=== PATIENT | male | born 1945 | race Hispanic/Latino ===

== ENCOUNTER → 2017-12-24 | Outpatient (CLI) | payer OTHER ==
[~2017-12-24] MED LIST: IOPAMIDOL-370 75 ML VIAL IV ONE; ISOVUE-370 50ML VIAL IV ONE
== END ==
LOC: RAH 07:21
PROVIDERS: ATTEND Internal Medicine Cardiovascular Disease
DX: I70.0 Atherosclerosis of aorta (principal); I70.202 Unspecified atherosclerosis of native arteries of extremities, left leg; I70.201 Unspecified atherosclerosis of native arteries of extremities, right leg
CPT/HCPCS: 75635; Q9967 ×2

== ENCOUNTER → 2021-12-01 | Outpatient (CLI) | payer OTHER ==
[~2021-12-01] VITALS: Ht 175.3 cm; Wt 76.2 kg
[~2021-12-01] MED LIST changes: -IOPAMIDOL-370 75 ML VIAL IV ONE; -ISOVUE-370 50ML VIAL IV ONE; +REGADENOSON 0.4 MG/5 ML PF SYG IVP SCH
== END | disposition home or self-care (01) ==
LOC: SHCH 09:01
PROVIDERS: ATTEND Internal Medicine Cardiovascular Disease
DX: I20.0 Unstable angina (principal); R42 Dizziness and giddiness; R94.39 Abnormal result of other cardiovascular function study
CPT/HCPCS: 78452; 93017; 96374; A9500 ×2; J2785

== ENCOUNTER → 2021-12-08 | Outpatient (CLI) | payer OTHER ==
[~2021-12-08] MED LIST changes: +IOHEXOL 350 MG/ML 100ML INFUS..BTL IV ONE; -REGADENOSON 0.4 MG/5 ML PF SYG IVP SCH
== END | disposition home or self-care (01) ==
LOC: RAH 10:01
PROVIDERS: ATTEND Family Medicine
DX: K76.89 Other specified diseases of liver (principal); R16.0 Hepatomegaly, not elsewhere classified; I70.0 Atherosclerosis of aorta
CPT/HCPCS: 74170; Q9967

== ENCOUNTER → 2022-02-02 | Outpatient (CLI) | payer OTHER | END | disposition home or self-care (01) | LOC: SHCH 10:58 | PROVIDERS: ATTEND Internal Medicine Cardiovascular Disease | DX: I73.9 Peripheral vascular disease, unspecified (principal) | CPT/HCPCS: 93925 ==

== ENCOUNTER 2022-04-14 06:48 | Day surgery (SDC) | payer OTHER ==
[2022-04-10 09:59] LABS: BASOPHILS % (AUTO) 0.5 % (0.0-5.0); EOSINOPHILS % (AUTO) 5.3 % (0.0-8.0); HEMATOCRIT 29.6 % (42-54); LYMPHOCYTES % (AUTO) 25.2 % (21.0-51.0); MEAN CORPUSCULAR HEMOGLOBIN 30.4 pg (27.0-33.0); MEAN CORPUSCULAR HGB CONC 33.4 g/dL (32.0-36.0); MEAN CORPUSCULAR VOLUME 90.8 fL (79-99); MONOCYTES % (AUTO) 10.4 % (3.0-13.0); PLATELET COUNT (AUTO) 268 K/uL (130-400); RED BLOOD CELL COUNT(AUTO) 3.26 MIL/uL (4.50-6.20); RED CELL DISTRIBUTION WIDTH 13.9 % (11.0-15.5); WHITE BLOOD COUNT (AUTO) 5.5 K/uL (4.8-10.8)
[2022-04-10 10:20] LABS: CREATININE 1.5 mg/dL (0.5-1.5); POTASSIUM 4.4 mmol/L (3.5-5.1)
[2022-04-10 10:21] LABS: INR 0.97 (0.85-1.15); PROTHROMBIN TIME 10.6 SEC (9.6-11.6)
[2022-04-10 10:22] LABS: PARTIAL THROMBOPLASTIN TIME 27.5 SEC (26.3-35.5)
[2022-04-10 14:11] VITALS: BP 142/60
[2022-04-14] VITALS (11 sets, daily range): BP systolic 96–129; BP diastolic 35–60
[~2022-04-14] VITALS: Ht 172.7 cm; Wt 77.4 kg
[~2022-04-14 06:48] MED LIST changes: +0.9% NACL 500ML IV.SOLN 500 ML IV SCH; +AMLO-257 PO; +ATOR40TA71 PO; +CLOP75TA32 PO; +FERR-72 PO; +FINA5TAB41 PO; +GLIP5TAB11 PO; -IOHEXOL 350 MG/ML 100ML INFUS..BTL IV ONE; +ISOS60TA77 PO; +LISI1TAB53 PO; +METO25TA6 PO; +TAMS-1 PO
[2022-04-14] MEDS ORDERED: 0.9%NACL 1000ML 1,000 ML IV ONE (07:10)
[2022-04-14] MEDS ORDERED: NITROGLYCERIN 50MG VIAL ONE (08:58)
[2022-04-14] MEDS ORDERED: HEPARIN 10,000 UNIT/10ML (1,000 UNIT/ML) VIAL ONE (08:58)
[2022-04-14] MEDS ORDERED: IODIXANOL 320 MG/ML 100 ML VIAL ONE (08:58)
[2022-04-14] MEDS ORDERED: FENTANYL CITRATE PF 50 MCG/1 ML 2ML VIAL ONE (08:59)
[2022-04-14] MEDS ORDERED: MIDAZOLAM HCL 1 MG/ML 2ML VIAL ONE (08:59)
[2022-04-14] MEDS ORDERED: LIDOCAINE HCL 400MG/20ML VIAL ONE (09:16)
[2022-04-14] MEDS ORDERED: ASPIRIN 325MG EC TAB PO ONE (10:02)
[2022-04-14] MEDS ORDERED: CLOPIDOGREL 300MG TAB ONE (10:02)
[2022-04-14] MEDS ORDERED: IOHEXOL-350 50ML VIAL IV ONE (10:56)
[2022-04-14] MEDS ORDERED: HYDRALAZINE 20MG/ML VIAL ONE (11:30)
[2022-04-14] MEDS ORDERED: GLUCAGON 1MG KIT 1 MG ML IM PRN (12:00)
[2022-04-14] MEDS ORDERED: 0.9%NACL 1000ML 1,000 ML IV SCH (12:00)
[2022-04-14] MEDS ORDERED: DEXTROSE 50%-WATER 50 ML DISP.SYRIN IV PRN (12:00)
== END 2022-04-14 17:00 | disposition home or self-care (01) ==
LOC: DAH 06:48
PROVIDERS: ATTEND Internal Medicine Cardiovascular Disease
DX: I70.211 Atherosclerosis of native arteries of extremities with intermittent claudication, right leg (principal); I12.9 Hypertensive chronic kidney disease with stage 1 through stage 4 chronic kidney disease, or unspecified chronic kidney disease; N18.30 Chronic kidney disease, stage 3 unspecified; E78.5 Hyperlipidemia, unspecified; Z87.891 Personal history of nicotine dependence; Z79.82 Long term (current) use of aspirin; Z79.01 Long term (current) use of anticoagulants; Z79.899 Other long term (current) drug therapy
CPT/HCPCS: 80048; 85025; 85610; 85730; 36415; 71045; 93005; 75716; 82948; C9765; C1725 ×5; C1894 ×3; C1769 ×2; C1887; C1760 ×2; C1876; C1727; J3010; J3490 ×2; J7030; J0360; J1644 ×3; J2250; Q9967 ×2; A4215; A4222; A4221; A4663; A4216; A4606; A4223 ×3; 99156; 99157

== ENCOUNTER → 2023-05-26 | Outpatient (CLI) | payer OTHER ==
[~2023-05-26] MED LIST changes: -0.9% NACL 500ML IV.SOLN 500 ML IV SCH; +AEC81 PO; +KRIL1CAP4 PO; +MELA1TAB17 PO; +METO-391 PO; +NITR0.4T50 SL; +VITAMIN B12 PO
[2023-05-26 12:57] LABS: % IRON SATURATION 12.7 % (30-44)
== END | disposition home or self-care (01) ==
LOC: LAB 10:19
PROVIDERS: ATTEND Internal Medicine Cardiovascular Disease
DX: Z12.11 Encounter for screening for malignant neoplasm of colon (principal); I73.9 Peripheral vascular disease, unspecified; I25.119 Atherosclerotic heart disease of native coronary artery with unspecified angina pectoris; D64.9 Anemia, unspecified; E78.5 Hyperlipidemia, unspecified; I12.9 Hypertensive chronic kidney disease with stage 1 through stage 4 chronic kidney disease, or unspecified chronic kidney disease; N18.9 Chronic kidney disease, unspecified; Z87.891 Personal history of nicotine dependence
CPT/HCPCS: 36415; 82270; 82728; 83540; 83550

== ENCOUNTER → 2023-05-27 | Outpatient (CLI) | payer OTHER ==
[~2023-05-27] VITALS: Ht 172.7 cm; Wt 77.9 kg
[2023-05-27 09:51] LABS: BASOPHILS # (AUTO) 0.03 K/uL (0.00-0.20); BASOPHILS % (AUTO) 0.6 % (0.0-5.0); EOSINOPHILS # (AUTO) 0.43 K/uL (0.00-0.70); HEMATOCRIT 27.9 % (42-54); IMMATURE GRANULOCYTE ABSOLUTE 0.04 K/uL (0-1); LYMPHOCYTES % (AUTO) 18.9 % (21.0-51.0); MEAN CORPUSCULAR HEMOGLOBIN 27.2 pg (27.0-33.0); MEAN CORPUSCULAR HGB CONC 31.9 g/dL (32.0-36.0); MEAN CORPUSCULAR VOLUME 85.3 fL (79-99); MONOCYTES # (AUTO) 0.6 K/uL (0.1-1.0); MONOCYTES % (AUTO) 11.3 % (3.0-13.0); NEUTROPHILS # (AUTO) 3.3 K/uL (1.8-7.7); NEUTROPHILS % (AUTO) 60.5 % (40.0-77.0); PLATELET COUNT (AUTO) 242 K/uL (130-400); RED BLOOD CELL COUNT(AUTO) 3.27 MIL/uL (4.50-6.20); RED CELL DISTRIBUTION WIDTH 17.6 % (11.0-15.5); WHITE BLOOD COUNT (AUTO) 5.4 K/uL (4.8-10.8)
[2023-05-27 09:55] LABS: APPEARANCE,URINE CLEAR (CLEAR); BILIRUBIN,URINE NEGATIVE (NEGATIVE); COLOR,URINE LIGHT-YELLOW (YELLOW); GLUCOSE, URINE (UA) 200 mg/dL (NEGATIVE); KETONES,URINE NEGATIVE (NEGATIVE); LEUKOCYTE ESTERASE ,URINE NEGATIVE Leu/uL (NEGATIVE); NITRATE,URINE NEGATIVE (NEGATIVE); OCCULT BLOOD,URINE MODERATE (NEGATIVE); PROTEIN,URINE 50 mg/dL (NEGATIVE); UROBILINOGEN,URINE 0.2 mg/dL (0.2-1.0)
[2023-05-27 09:58] LABS: ADD UA MICROSCOPIC YES
[2023-05-27 10:01] LABS: CREATININE 1.3 mg/dL (0.5-1.5); POTASSIUM 3.8 mmol/L (3.5-5.1)
[2023-05-27 10:03] LABS: INR 0.94 (0.85-1.15)
[2023-05-27 10:18] VITALS: BP 170/82; PULSE 54; RESP 18
== END | disposition home or self-care (01) ==
LOC: DAH 10:00 → EDSTATUS 13:00
PROVIDERS: ATTEND Internal Medicine Cardiovascular Disease
DX: Z01.810 Encounter for preprocedural cardiovascular examination (principal); R94.39 Abnormal result of other cardiovascular function study; I20.9 Angina pectoris, unspecified; Z79.01 Long term (current) use of anticoagulants
CPT/HCPCS: 36415; 71045; 80048; 80061; 81001; 83880; 85025; 85610; 85730; 93005

== ENCOUNTER 2025-06-27 06:02 | Day surgery (SDC) | payer OTHER ==
[2025-06-25 11:16] LABS: IMMATURE GRANULOCYTE ABSOLUTE 0.06 K/uL (0-1); NUCLEATED RED BLOOD CELLS 0.0 % (0.0-0.19); PLATELET COUNT (AUTO) 267 K/uL (130-400); RED BLOOD CELL COUNT(AUTO) 3.62 MIL/uL (4.50-6.20); RED CELL DISTRIBUTION WIDTH 15.5 % (11.0-15.5); WHITE BLOOD COUNT (AUTO) 8.9 K/uL (4.8-10.8)
[2025-06-25 11:18] LABS: APPEARANCE,URINE CLEAR (CLEAR); GLUCOSE, URINE (UA) NEGATIVE (NEGATIVE); LEUKOCYTE ESTERASE ,URINE NEGATIVE Leu/uL (NEGATIVE); NITRATE,URINE NEGATIVE (NEGATIVE); OCCULT BLOOD,URINE +- (TRACE) (NEGATIVE)
[2025-06-25 11:21] LABS: CREATININE 1.3 mg/dL (0.5-1.3); GLOMERULAR FILTR. RATE CALC 56.0 mL/min (>90); GLUCOSE,RANDOM 139.0 mg/dL (70-105); SODIUM SERUM 139.0 mmol/L (136-145); UREA NITROGEN, BLOOD 15.0 mg/dL (7-18)
[2025-06-25 11:23] VITALS: BP 155/50; PULSE 50; RESP 13; TEMP 97.2
[2025-06-25 11:30] LABS: ADD UA MICROSCOPIC YES
[2025-06-25 11:38] LABS: INR 1.04 (0.85-1.15)
[2025-06-25 11:43] LABS: SQUAMOUS EPITHELIAL CELL,UR RARE /HPF (0-2)
--- NOTE | 2025-06-25 12:18 | EKG ---
[facility] Test Date: 2025-06-25 Test Time: 10:56:50 Pat Name: CHRISTY ACOSTA Department: [facility] Room: Gender: M Administrative Services Officer: [id number] : 1945 Requested By: CANDIE WYATT Order Number: [id number] Reading MD: Eugenio Blount Measurements Intervals [place] Rate: 49 P: 136 MD: 218 QRS: 60 QRSD: 73 T: 101 QT: 450 QTc: 405 Interpretive Statements Sinus or ectopic atrial bradycardia Low voltage, extremity leads Nonspecific T abnormalities, lateral leads Compared to ECG 05/27/2023 09:29:09 Bradycardia, nonsinus now present Low QRS voltage now present T-wave abnormality now present Sinus rhythm no longer present Electronically Signed On 06-25-2025 13:44:01 CDT by Eugenio Blount Please click the below link to view image of tracing.
--- NOTE | 2025-06-25 21:59 | HMCIMG ---
EXAM: XR Chest, 1 View. CLINICAL HISTORY: 79 year old male with reason: preop. COMPARISON: XR Chest dated 05/27/2023. FINDINGS: LUNGS: The lungs are clear. No consolidation. PLEURAL SPACES: No pleural effusion or pneumothorax. HEART: The heart size is normal. BONES: No acute osseous abnormality. VASCULATURE: Atherosclerotic aorta. Note: The comparison study shows similar findings to the prior study. IMPRESSION: 1. No acute findings. 2. Findings are similar to prior XR Chest dated 05/27/2023. /[place]
--- NOTE | 2025-06-26 08:56 | NUR ---
report reported creat and ua wbc to anup garrett np. ok to proceed
[2025-06-27] VITALS (12 sets, daily range): BP systolic 117–161; BP diastolic 43–59; PULSE 55–73; RESP 14–18; TEMP 97.2–97.9
[~2025-06-27] VITALS: Ht 172.7 cm; Wt 76.4 kg
[~2025-06-27 06:02] MED LIST changes: -AEC81 PO; -AMLO-257 PO; +AMLO2.5T4 PO; -FERR-72 PO; +FOLI0.8C PO; -GLIP5TAB11 PO; +GLIP5TAB15 PO; +ISOS120T14 PO; -ISOS60TA77 PO; -KRIL1CAP4 PO; -LISI1TAB53 PO; -METO25TA6 PO; +RANO500T6 PO; -TAMS-1 PO; +TAMS-55 PO
[2025-06-27] MEDS ORDERED: IOHEXOL 350 MG/ML 100ML INFUS..BTL IV ONE (07:12)
[2025-06-27] MEDS ORDERED: LIDOCAINE HCL 400MG/20ML VIAL ONE (07:12)
[2025-06-27] MEDS ORDERED: HEParin-NS 1,000 UNIT/500 ML 1,000 ML IV ONE (07:12)
[2025-06-27] MEDS ORDERED: NITROGLYCERIN 50MG VIAL ONE (07:12)
[2025-06-27] MEDS ORDERED: MIDAZOLAM HCL 1 MG/ML 2ML VIAL ONE (07:32)
[2025-06-27] MEDS ORDERED: IOHEXOL-350 50ML VIAL IV ONE (08:11)
[2025-06-27] MEDS ORDERED: 0.9%NACL 1000ML 1,000 ML IV SCH (09:00)
[2025-06-27] MEDS ORDERED: DEXTROSE 50%-WATER 50 ML DISP.SYRIN IV PRN (09:00)
--- NOTE | 2025-06-27 09:23 | PRN ---
DATE OF PROCEDURE: 06/27/2025 PROCEDURE PERFORMED: LEFT HEART CATHETERIZATION, LEFT VENTRICULOGRAM, LEFT AND RIGHT SELECTIVE CORONARY ANGIOGRAM, RIGHT COMMON FEMORAL ANGIOGRAM, AND CONSCIOUS SEDATION. 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 AWNING SPREADER: CANDIE WYATT MD, [facility] INDICATION: LIMITING ANGINA PECTORIS, MEDICALLY REFRACTORY, ABNORMAL LEXISCAN STRESS TEST DEMONSTRATING A FIXED INFERIOR WALL DEFECT BUT NORMAL INFERIOR WALL MOTION WORRISOME FOR A CRITICAL RCA STENOSIS PROCEDURE NOTE: After informed consent was obtained the patient was prepped and draped in the usual sterile fashion. A 6 Irish arterial sheath was inserted in the right femoral artery using micropuncture technique with ultrasound guidance with a front wall, first pass puncture. This was performed after fluoroscopic identification of bony landmarks to facilitate a more accurate puncture of the right common femoral artery. The arterial sheath was aspirated and flushed. A 6 Irish pigtail catheter was then advanced over a J-tipped guidewire to the ascending aorta and was prolapsed into the left ventricle. The catheter was aspirated and flushed and pressure measurements were obtained. A left ventriculogram was then performed in a 30 TAYLOR projection. A pullback procedure was then performed, and this catheter was removed over a J-tipped guidewire. A 6F JL-4 was then advanced to the ascending aorta over a J-tipped guidewire, was aspirated and flushed, and was used for selective left coronary angiograms in multiple obliquities. A JR-4 was advanced in a similar fashion to the asce nding aorta over a J-tipped guidewire and was used for selective right coronary angiograms in multiple obliquities with findings as outlined below. A right common femoral angiogram was performed to assess suitability for Perclose suture closure and the Perclose device was deployed in standard fashion. Perclose suture closure was successful without bleeding or hematoma. The patient tolerated the procedure well and was returned to the holding area in stable condition. FINDINGS: LEFT HEART HEMODYNAMICS: The patient's LVEDP was 16 mm of mercury prior to the LV-gram in 17 mm of mercur y after the LV-gram. There was no aortic valve gradient on pullback. LEFT VENTRICULOGRAM: A left ventriculogram in a 30 degree TAYLOR projection demonstrated normal LV systolic function and segmental wall motion with an LVEF of 65%. CORONARY ANGIOGRAM: LEFT MAIN: The left main had a 40% ostial stenosis without dampening or ventricularization of the pressure waveform. LEFT ANTERIOR DESCENDING: The left anterior descending was moderate size due to the presence of a very large diagonal branch which paralleled the LAD and reached beyond the apex. The proximal and mid LAD were normal. The distal LAD had a 60% tubular stenosis and the diagonal branches were normal. The distal 2nd diagonal provided mature collateral filling to the PDA and filled the RCA retrograde nearly completely to its origin in the right coronary cusp. LEFT CIRCUMFLEX: The left circumflex was nondominant but large and had a 60% ostial calcific stenosis with a right angle takeoff from the left main. Otherwise the circumflex was normal in the OM branches were normal. RAMUS INTERMEDIATE BRANCH: There was a large ramus intermediate branch which was normal. RIGHT CORONARY ARTERY: The right coronary artery had severe 90% calcific stenosis at the proximal RCA with a 99% stenosis at the ostium. There was a calcific 80% proximal stenosis, 75% calcific proximal to mid stenosis, and an ulcerated 90% plaque in the mid RCA. The PDA and posterolateral branches were normal and filled retrograde via mature [id number] collaterals from the diagonal branch of the LAD. IMPRESSION: Stable, high threshold angina pectoris. Normal LV function and segmental wall motion with LVEF of 65%. No aortic stenosis or mitral regurgitation. Severe single-vessel CAD with a 99% ostial stenosis followed by calcific 80-90% diffuse proximal to mid RCA stenosis, poorly suited to PCI The RCA fills retrograde briskly via mature hpht-[id number]-hzaet collaterals from the diagonal branch providing stability and angina only at higher thresholds of exertion. 60% distal LAD stenosis. 60% ostial left circumflex stenosis 40% ostial left main stenosis RECOMMENDATION: Continued medical management and risk factor modification. Low risk candidate for planned endoscopy or for surgical procedures. COMPLICATIONS OF PROCEDURE: None, the patient tolerated the procedure well and was returned to his room in stable condition. HEMOSTASIS: Manual compression. There was calcific stenosis at the right common femoral artery puncture site. ESTIMATED BLOOD LOSS: Less than 10 mL. CONTRAST TOTAL: 115 mL. CANDIE WYATT MD Jun 27, 2025 09:23
--- NOTE | 2025-06-27 10:13 | NUR ---
SPOKE TO PATIENTS DAUGHTER AND TOLD HER PT OK TO LOOP TENDER AT 1500,, ALSO TOLD HER MEDICAL CLEARANCE FOR DR. POLO IS IN DISCHARGE PACKET
== END 2025-06-27 15:37 | disposition home or self-care (01) ==
LOC: DAH 06:02
PROVIDERS: ATTEND Internal Medicine Cardiovascular Disease
DX: R94.39 Abnormal result of other cardiovascular function study (principal); I25.118 Atherosclerotic heart disease of native coronary artery with other forms of angina pectoris; I25.83 Coronary atherosclerosis due to lipid rich plaque; I25.84 Coronary atherosclerosis due to calcified coronary lesion; E78.5 Hyperlipidemia, unspecified; I12.9 Hypertensive chronic kidney disease with stage 1 through stage 4 chronic kidney disease, or unspecified chronic kidney disease; E11.22 Type 2 diabetes mellitus with diabetic chronic kidney disease; N18.32 Chronic kidney disease, stage 3b; K21.9 Gastro-esophageal reflux disease without esophagitis; Z98.890 Other specified postprocedural states; F17.200 Nicotine dependence, unspecified, uncomplicated; Z85.51 Personal history of malignant neoplasm of bladder; Z79.899 Other long term (current) drug therapy
CPT/HCPCS: 80048; 83880; 85025; 85610; 85730; 81001; 36415; 71045; 93005; 93458; 82948; 99157 ×4; 99156; C1894 ×2; J3010; J3490 ×3; J0360; J2250; J1644; Q9967 ×2; A4215; A4222; A4221; A4663; A4216; A4606; Q9965 ×2; A4223 ×3; 96360; 96361